=== PATIENT | female | born 2000 | race Two or more races ===

== ENCOUNTER 2021-04-08 17:24 | Outpatient (CLI) | payer OTHER ==
[2021-04-08] MEDS ORDERED: IRON325 MG PO (19:15)
[2021-04-08] MEDS ORDERED: PRENATAL TABLE1 EAC1 PO (19:15)
== END 2021-04-09 11:52 | disposition home or self-care (01) ==
LOC: OBS/DEL 17:24
PROVIDERS: ATTEND Specialist
DX: O26.893 Other specified pregnancy related conditions, third trimester (principal); R10.2 Pelvic and perineal pain; Z3A.35 35 weeks gestation of pregnancy

== ENCOUNTER 2021-05-04 11:45 | Inpatient (IN) | payer OTHER ==
[~2021-05-04] VITALS: Ht 154.9 cm; Wt 2.7 kg
[~2021-05-04 11:45] MED LIST: IRON325 MG PO; PRENATAL TABLE1 EAC1 PO
== END 2021-05-10 14:01 | disposition home or self-care (01) | DRG 788 ==
LOC: OB/GYN 05-07 06:53 → O/R 05-07 06:53 → OB/GYN 05-07 11:30
PROVIDERS: ADMIT Specialist; ATTEND Specialist
PROC: 4A1HXFZ Monitoring of Products of Conception, Cardiac Rhythm, External Approach (ICD-10-PCS; 2021-05-07)
PROC: 10D00Z1 Extraction of Products of Conception, Low, Open Approach (ICD-10-PCS; principal; 2021-05-07 17:00)
DX: O34.211 Maternal care for low transverse scar from previous cesarean delivery (principal); O99.02 Anemia complicating childbirth; D64.9 Anemia, unspecified; Z37.0 Single live birth; Z3A.39 39 weeks gestation of pregnancy

== ENCOUNTER 2022-12-16 13:08 | Emergency (ER) | payer OTHER ==
[~2022-12-16] VITALS: Ht 154.9 cm; Wt 81.6 kg
== END 2022-12-16 19:22 | disposition home or self-care (01) ==
LOC: ER 13:08
DX: R51.9 Headache, unspecified (principal); Z20.822 Contact with and (suspected) exposure to COVID-19

== ENCOUNTER 2024-04-22 08:24 | Outpatient (CLI) | payer OTHER ==
[~2024-04-22 08:24] MED LIST changes: +FOLIC ACID0.8 M1; +PRENA1 CHEW TA1.4 MG
== END 2024-04-22 08:26 | disposition home or self-care (01) ==
LOC: PRENATAL 08:24
PROVIDERS: ATTEND Obstetrics & Gynecology Maternal & Fetal Medicine
DX: O26.849 Uterine size-date discrepancy, unspecified trimester (principal); O36.8199 Decreased fetal movements, unspecified trimester, other fetus; O99.019 Anemia complicating pregnancy, unspecified trimester; O34.219 Maternal care for unspecified type scar from previous cesarean delivery; Z3A.32 32 weeks gestation of pregnancy

== ENCOUNTER 2024-05-03 22:03 | Outpatient (CLI) | payer OTHER ==
[~2024-05-03] VITALS: Ht 154.9 cm; Wt 88.0 kg
[2024-05-03 11:23] VITALS: BP 93/63
[2024-05-03 20:55] VITALS: BP 114/72
[2024-05-03 21:59] VITALS: BP 109/70
[2024-05-03] MEDS ORDERED: RINGERS SOLUTION,LACTATED 1,000 ML IV SCH (22:30)
[2024-05-03] MEDS ORDERED: MORPHINE SULFATE 4 MG/ML CARTRIDGE IV ONE (22:30)
[2024-05-03] MEDS ORDERED: IRON325 MG PO (22:51)
[2024-05-03] MEDS ORDERED: TYLENOL325 MG PO (22:51)
[2024-05-03 23:23] VITALS: BP 93/63
[2024-05-04] MEDS ORDERED: ACETAMINOPHEN 500 MG GEL..CAP PO ONE (02:45)
[2024-05-04] MEDS ORDERED: DIPHENHYDRAMINE HCL 50 MG/ML VIAL 1ML IV ONE (02:45)
[2024-05-04 03:01] VITALS: BP 108/70
[2024-05-04 06:36] VITALS: BP 87/51; O2SAT 100
[2024-05-04 10:04] VITALS: BP 90/53
== END 2024-05-04 13:05 | disposition home or self-care (01) ==
LOC: PRENATAL 22:03 → OBS/DEL 22:26 → PRENATAL 05-04 13:05
PROVIDERS: ATTEND Obstetrics & Gynecology
DX: O26.849 Uterine size-date discrepancy, unspecified trimester (principal); O36.8199 Decreased fetal movements, unspecified trimester, other fetus; Z3A.33 33 weeks gestation of pregnancy

== ENCOUNTER 2024-05-28 07:41 | Inpatient (IN) | payer OTHER ==
[~2024-05-28] VITALS: Ht 154.9 cm; Wt 2.7 kg
[~2024-05-28 07:41] MED LIST changes: +TYLENOL325 MG PO
[2024-05-28 09:17] LABS: HEMOGLOBIN 9.9 g/dL (12.0-15.00); MEAN CELL VOLUME 71.1 fL (80.00-100.00); PLATELET COUNT 311 K/uL (150-450); RED BLOOD COUNT 4.51 M/uL (4.00-6.00)
[2024-05-28 09:20] LABS: RED CELL DISTRIBUTION WIDTH 21.2 % (11.5-14.5)
[2024-05-28 09:24] LABS: URINE APPEARANCE Clear; URINE BILIRRUBIN Negative (NEGATIVE); URINE BLOOD Negative; URINE COLOR Yellow; URINE GLUCOSE Negative (NEGATIVE); URINE KETONE Trace (NEGATIVE); URINE LEUKOCYTE Negative; URINE NITRATE Negative; URINE PROTEIN Trace (NEGATIVE); URINE UROBILINOGEN 0.2 E.U./dl
[2024-05-28 09:31] LABS: URINE BACTERIA 1407.3 uL (0.0-1933); URINE EPITHELIAL CELLS 23.3 uL (0.0-38.8); URINE WBC 26.1 uL (0.0-23.2)
[2024-05-28 09:36] LABS: INR 0.95; PARTIAL THROMBOPLASTIN TIME 26.2 SECONDS (22.0-34.0); PROTHROMBIN TIME 10.4 SECONDS (9.0-11.5)
[2024-05-28 09:37] LABS: URINE CAST 0.61 uL (0.0-1.40)
[2024-05-28 11:52] LABS: RH POSITIVE
[2024-06-01 08:32] VITALS: BP 111/76
[2024-06-01] MEDS ORDERED: MEPERIDINE HCL/PF 50 MG/ML VIAL IM PRN (18:00)
[2024-06-01] MEDS ORDERED: PROMETHAZINE HCL 50 MG/ML AMPUL IM PRN (18:00)
[2024-06-01] MEDS ORDERED: MORPHINE SULFATE 4 MG/ML VIAL IV ONE ×2 (18:40→19:40)
[2024-06-01 20:36] VITALS: BP 118/75
[2024-06-02 00:44] VITALS: BP 113/67
[2024-06-02 06:47] LABS: HEMATOCRIT 30.5 % (36.0-45.00); HEMOGLOBIN 9.6 g/dL (12.0-15.00); MEAN CELL VOLUME 71.1 fL (80.00-100.00); MEAN CORPUSCULAR HEMOGLOBIN 22.3 pg (27.00-32.0); MEAN CORPUSCULAR HGB CONC 31.4 g/dl (32.0-36.0); PLATELET COUNT 272 K/uL (150-450); RED CELL DISTRIBUTION WIDTH 21.3 % (11.5-14.5)
[2024-06-02] MEDS ORDERED: OxyCODONE HCL/APAP UD (PERCOCET) PO PRN (08:00)
[2024-06-02 08:45] VITALS: BP 104/71
[2024-06-02] MEDS ORDERED: PNV,CALCIUM 72/IRON/FOLIC ACID 1 TAB TABLET PO SCH (09:00)
[2024-06-02] MEDS ORDERED: DOCUSATE SODIUM 100MG CAP PO SCH (09:00)
[2024-06-02] MEDS ORDERED: SIMETHICONE 125 MG CAPSULE PO SCH (09:00)
[2024-06-02 13:42] VITALS: BP 106/69
[2024-06-02 16:07] VITALS: BP 107/72
[2024-06-03 02:04] VITALS: BP 116/77
[2024-06-03 08:00] VITALS: BP 112/70
[2024-06-03 16:00] VITALS: BP 111/69
[2024-06-04 01:31] VITALS: BP 103/80
[2024-06-04 08:45] VITALS: BP 108/71
== END 2024-06-04 14:23 | disposition home or self-care (01) | DRG 785 ==
LOC: O/R 06-01 06:29 → OB/GYN 06-01 06:29
PROVIDERS: ADMIT Obstetrics & Gynecology; ATTEND Obstetrics & Gynecology
PROC: 0UB70ZZ Excision of Bilateral Fallopian Tubes, Open Approach (ICD-10-PCS; 2024-06-01)
PROC: 4A1HXCZ Monitoring of Products of Conception, Cardiac Rate, External Approach (ICD-10-PCS; 2024-06-01)
PROC: 10D00Z1 Extraction of Products of Conception, Low, Open Approach (ICD-10-PCS; principal; 2024-06-01 17:45)
DX: O34.211 Maternal care for low transverse scar from previous cesarean delivery (principal); Z30.2 Encounter for sterilization; Z20.822 Contact with and (suspected) exposure to COVID-19; Z37.0 Single live birth; Z3A.38 38 weeks gestation of pregnancy